=== PATIENT | female | born 1985 | race Two or more races ===

== ENCOUNTER 2020-11-12 12:16 | Emergency (ER) | payer MEDICARE, MEDICAID ==
[~2020-11-12] VITALS: Ht 121.9 cm; Wt 90.7 kg
[2020-11-12] MEDS ORDERED: cefTRIAXone SOD 1,000 MG VL IM ONE (14:00)
[2020-11-12] MEDS ORDERED: ACETAMINOPHEN 500 MG TAB PO ONE (14:00)
[2020-11-12] MEDS ORDERED: SODIUM CHLORIDE 0.9% 1,000 ML IV ONE (15:30)
[2020-11-12] MEDS ORDERED: AZITHROMYCIN 500MG/ 250ML 250 ML IV ONE (15:30)
[2020-11-12] MEDS ORDERED: BAMLANIVIMAB 700MG/200ML 200 ML IV ONE (17:00)
[2020-11-12] MEDS ORDERED: IPRATROPIUM BROM 0.5 MG/2.5ML INH SOL ONE (17:17)
[2020-11-12] MEDS ORDERED: ALBUTEROL SULF 2.5 MG/0.5ML(0.5%) NEB SOLN ONE (17:17)
[2020-11-12 19:15] VITALS: BP 94/62
== END 2020-11-12 19:08 | disposition home or self-care (01) ==
LOC: ER 12:16
DX: U07.1 COVID-19 (principal); J12.89 Other viral pneumonia; E86.0 Dehydration; J03.90 Acute tonsillitis, unspecified
CPT/HCPCS: 36415; 71045; 87426; 96365; 96366; 99285; J0456; J0696; J7030; J7644; M0239; Q0239; 96368